=== PATIENT | male | born 1935 | race Caucasian/White ===

== ENCOUNTER 2018-01-10 06:33 | Day surgery (SDC) | payer OTHER ==
[~2018-01-10] VITALS: Ht 167.6 cm; Wt 78.6 kg
[~2018-01-10 06:33] MED LIST: AMLO5; ASPI325EC PO; ASPI81CH; ASPI81EC PO; ATEN25 PO; AZOR; Bystolic20 MG; CHOL10002; CLOT10; Combigan Eye Dro5 ML; Dazidox10 MG; FISH OIL 1,0001 EAC1; FOLI1; FOLI400; HYDCHL12.5 PO; HYDCHL25; LATANOPROST1 GM; LOSARTAN POTAS100 MG; LOSHYD PO; METO25; METTREX2.5; METTREX2.5 PO; Mobic15 MG; NEBI5 PO; Norco 5-325 Ta1 EACH PO; PRED20; Prilosec Otc20 MG; Silvadene20 GM; TADA10TA; TRAM50 PO; Voltaren100 GM; Zofran Odt4 MG SL
== END 2018-01-10 08:34 | disposition home or self-care (01) ==
LOC: ORSCSDS 06:33
PROVIDERS: Ophthalmology
PROC: 085K3ZZ Destruction of Left Lens, Percutaneous Approach (ICD-10-PCS; principal; 2018-01-10 08:00)
DX: H25.12 Age-related nuclear cataract, left eye (principal); I10 Essential (primary) hypertension; J44.9 Chronic obstructive pulmonary disease, unspecified; M06.9 Rheumatoid arthritis, unspecified; Z79.82 Long term (current) use of aspirin; Z79.899 Other long term (current) drug therapy
CPT/HCPCS: J2250; J3301; J7040; J7120; V2632

== ENCOUNTER → 2018-08-29 | Outpatient (CLI) | payer OTHER | END | disposition home or self-care (01) | LOC: LAB SHORT 08:18 → PLD 08:18 | DX: D04.4 Carcinoma in situ of skin of scalp and neck (principal); L57.8 Other skin changes due to chronic exposure to nonionizing radiation; L83 Acanthosis nigricans | CPT/HCPCS: 88305 ==

== ENCOUNTER → 2019-11-23 | Outpatient (CLI) | payer OTHER ==
[2019-11-25 18:41] LABS: Creatinine Urine 95.4 mg/dL (27.00-270.00)
[2019-11-25 18:46] LABS: Microalbumin, Urine Quant. 18.9 mg/L (0.000-20.000)
== END | disposition home or self-care (01) ==
LOC: LAB SHORT 14:00 → LAB 14:00 → LAB FUT 11-20 08:40
PROVIDERS: Internal Medicine Nephrology
DX: N18.3 Chronic kidney disease, stage 3 (moderate) (principal); D63.1 Anemia in chronic kidney disease; R80.9 Proteinuria, unspecified
CPT/HCPCS: 81050; 82043; 82570; 84156

== ENCOUNTER → 2019-11-26 | Outpatient (CLI) | payer OTHER | END | disposition home or self-care (01) | LOC: PLD 08:46 → LAB SHORT 08:46 | DX: C44.42 Squamous cell carcinoma of skin of scalp and neck (principal) | CPT/HCPCS: 88305 ==

== ENCOUNTER → 2020-06-18 | Outpatient (CLI) | payer OTHER | END | disposition home or self-care (01) | LOC: LAB SHORT 13:01 → PLD 13:01 | DX: D48.5 Neoplasm of uncertain behavior of skin (principal) | CPT/HCPCS: 88305 ==